=== PATIENT | female | born 2005 | race Two or more races ===

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

== ENCOUNTER 2024-09-21 04:05 | Emergency (ER) | payer OTHER, SELFPAY ==
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
--- NOTE | ~2024-09-21 | XR_ITS ---
Right Shoulder Technique: AP and axillary views were obtained. Clinical History: Trauma Findings: No fracture or dislocation is seen. Osseous alignment is anatomic. The glenohumeral and acr omioclavicular joint spaces are preserved. Soft tissues are unremarkable. Impression: Unremarkable right shoulder radiographs. Reviewed, dictated and finalized at [facility]. Impression: Unremarkable right shoulder radiographs.
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
[2024-09-21 04:06] VITALS: BP 129/77; PULSE 93; RESP 14; TEMP 36.6; O2SAT 100
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
--- OUTSIDE RECORDS SUMMARY | 2024-09-21 05:14 | XMS_ITS ---
Author Organization [facility], [facility] Address [address] [place] [address] Care Team Providers Care Brim Welt Sewing Machine Operator Name Role Phone Roland Dickinson Primary Care Provider Maya Morse Unavailable [phone] REASON FOR VISIT New Patient Psych Eval, zoom link sent Medications Medication SIG (Take, Route, Frequency, Duration) Notes Start Date End Date Status Naloxone HCl 4 MG/0.1ML as directed Nasally 2022 Not-Taking guanFACINE HCl 1 MG 1 tablet at bedtime Orally Once a day for 30 day(s) Not-Taking Sublocade 300 MG/1.5ML 1.5 mL Subcutaneous 024 Active cloNIDine HCl 0.1 MG 0.5 tablet Orally t wice a day PRN for 30 days Active Carbamide Peroxide 6.5 % 5 drops into af fected ear Otic Twice a day for 7 days Not-Taking Buprenorphine HCl-Naloxone HCl 4-1 MG 1 film under the tongue and allow to dissolve Sublingual Once a day As needed for OPIOID CRAVINGS 10/08/2023 Active Sertraline HCl 50 MG 1 tablet Orally Onc e a day for 30 days Active Social History Sex Assigned At : Social History Observation Description Sex Assigned At Female Encounters Encounter Location Date Provider Diagnosis [address] [place] [address] 09/15/2024 Maya Morse Plan Of Treatment No Information Progress Notes * Patricia AMBROSEOB:[birth year] (19 yo F)Acc No.[id number]:09/15/2024 UNLOCKED PROGRESS NOTE Patient: Ivon RIZO Provider: Vane Morse, MSN, FLOOR LAYER APPRENTICE, WEBSPHERE DEVELOPER-C :2005 A ge:19 Y S ex:Female Date:09/15/2024 Address:[address] [place] [address], [address] Pcp:Roland Dickinson Subjective: * Chief Complaints: * 1 . New Patient Psych Eval, zoom link sent. * Medical History: * Medications: T aking Sertraline HCl 50 MG Tablet 1 tablet Orally Once a day , Taking cloNIDine HCl 0.1 MG Tablet 0.5 tablet Orally twice a day PRN , Taking Sublocade 300 MG/1.5ML Solution Prefilled Syringe 1.5 mL Subcutaneous , Taking Buprenorphine HCl- Naloxone HCl 4-1 MG Film 1 film under the tongue and allow to dissolve Sublingual Once a day As needed for OPIOID CRAVINGS, Not-Taking Carbamide Peroxide 6.5 % Solution 5 drops into affected ear Otic Twice a day , Not-Taking Naloxone HCl 4 MG/0.1ML Liquid as directed Nasally , Not-Taking guanFACINE HCl 1 MG Tablet 1 tablet at bedtime Orally Once a day Objective: * Vitals: Assessment: Plan: * Treatment: * * Electronic signature of Caesar Morse , [id number] on 09/21/2024 at 05:14 AM CDT Sign off status: Pending * Provider: Vane Morse, MSN, FLOOR LAYER APPRENTICE, WEBSPHERE DEVELOPER-C Date: 0 09/15/2024 Generated for Annelise grullon/Cristi/Paul on: 0 09/21/2024 05:14 AM CDT
--- OUTSIDE RECORDS SUMMARY | 2024-09-21 05:14 | XMS_ITS | Patient Health Record ---
Author Organization [facility] Address [address] [place] [address] Care Team Providers Care Supervisor Heavy Equipment Name Role Phone Roland Dickinson Primary Care Provider Ann Bettencourt Unavailable [phone] Maya Morse Unavailable [phone] Urvashi Valentine Unavailable Allergies No Known Allergies Results Component Value Reference Range Notes 12 Panel Urine Drug Screen Reviewed date:10/08/2023 02:08:21 PM Interpretation: Performing Lab: Notes/Report: THC POS ASIM neg MOP (OPI) neg AMP neg MET neg BAR neg BZO neg MDMA neg MTD neg OXY neg PCP neg BUP POS Reason For Referral No Information Medications Medication SIG (Take, Route, Frequency, Duration) Notes Start Date End Date Status Naloxone HCl 4 MG/0.1ML as directed Nasally 2022 Not-Taking guanFACINE HCl 1 MG 1 tablet at bedtime Orally Once a day for 30 day(s) Not-Taking Sublocade 300 MG/1.5ML 1.5 mL Subcutaneous 024 Active Buprenorphine HCl-Naloxone HCl 4-1 MG 1 film under the tongue and allow to dissolve Sublingual Once a day As needed for OPIOID CRAVINGS 10/08/2023 Active Sertraline HCl 50 MG 1 tablet Orally Onc e a day for 30 days Active cloNIDine HCl 0.1 MG 0.5 tablet Orally t wice a day PRN for 30 days Active Carbamide Peroxide 6.5 % 5 drops into af fected ear Otic Twice a day for 7 days Not-Taking Social History Tobacco Use: Social History Observation Description Date Details (start date - stop date) Unknown Sex Assigned At : Social History Observation Description Sex Assigned At Female Dont use, Tobacco Use/Smoking Question Answer Notes Are you a Uses tobacco in other forms Additional Findings: Tobacco User e-Cigarette PRAPARE Question Answer Notes Date Completed/Updated: 10/08/2023 What is your current housing situation? I have h ousing Are you worried about losing your housing? No What is the highest level of school that you have finished? High school diploma or GED What is your current work situation? Unemployed and seeking work In the past year, have you o r any family members you live with been unable to get any of the following when it was really needed? Check all that apply I do not have problems meeting my needs Has lack of transportation k ept you from medical appointments, meetings, work or from getting things needed for daily living? No How often do you see or talk to people that you care about and feel close to? (For example: talking to friends on the phone, visiting friends or family, going to restoration or club meetings) More than 5 times a week How stressed are you? Stress is when someone feels tense, nervous, anxious, or can\t sleep at night because their mind is troubled Somewhat In the past year have you sp ent more than 2 nights in a row in a [place] health care facility, jail, longterm center, or juvenile correctional facility? No Are you a refugee? No What country are you from? [place] Do you feel physically and e motionally safe where you currently live? Yes In the past year, have you b een afraid of your partner or ex-partner? No PRAPARE Score: 6 Tobacco Control (Standard) Question Answer Notes Tobacco use: Uses tobacco in other forms Additional Findings: Tobacco user e-cigarette Problems Problem Type SNOMED Code ICD Code Onset Dates Problem Status W/U Status Risk Notes Problem Tobacco user (442275923) Nicotine dependence, unspecified, uncomplicated (F17.200) Active confirmed Problem Anxiety disorder (191791026) Anxiety disorder, unspecified (F41.9) 03/20/20 Active confirmed Problem Posttraumatic stress disorder (59395184) PTSD (post-traumatic stress disorder) (F43.10) 03/20/20 Active confirmed Problem Cannabis abuse (96781838) Cannabis use disorder, mild, abuse (F12.10) 10/20/20 23 Active confirmed Problem Opioid abuse (1813932) Opioid use disorder, mild, in early remission (F11.10) 03/20/20 23 Active confirmed Problem History of intravenous drug abuse (situation) (9483842387037572 3) IV drug abuse (F19.10) Active confirmed Problem 43550120 Current mild episode of major depressive disorder without prior episode (F32.0) 03/04/20 22 Active confirmed Problem Opioid use disorder (7110222074) Opioid use disorder (F11.99) Active confirmed Vital Signs Heart Rate 65 /min 10/08/2023 Respiratory Rate 16 /min 10/08/2023 Blood pressure diastolic 72 mm Hg 10/08/2023 Oximetry 97 % 10/08/2023 Height 65 in 10/08/2023 BMI Percentile 48.27 % 10/08/2023 Blood pressure systolic 116 mm Hg 10/08/2023 Weight 129 lb 6 oz lbs 10/08/2023 BMI 21.53 kg/m2 10/08/2023 Encounters Encounter Location Date Provider Diagnosis [address] [address] 10/08/2023 Urvashi Valentine Opioid use disorder F11.99 ; Cannabis use disorder, mild, abuse F12.10 and Nicotine dependence, unspecified, uncomplicated F17.[address] [address] 10/08/[address] [place] [address] 10/15/[address] [place] [address] 09/15/2024 Maya Morse Assessments Encounter Date Diagnosis (ICD Code) Assessment Notes Treatment Notes Treatment Clinical Notes Section Notes 10/08/2023 Opioid use disorder (ICD-10 - F11.99) 10/08/2023 Cannabis use disorder, mild, abuse (ICD-10 - F12.10) 10/08/2023 Nicotine dependence, unspecified, uncomplicated (ICD-10 - F17.200) 10/08/2023 Other Staff [facility] assists Consumer to connect with a middle school coach based on need. Provided case management services to address social determinants of health needs and reduce barriers to health care services. Plan Of Treatment No Information Insurance Providers Payer Name Payer Address Payer Phone Subscriber Number Group Number Insured Name Patient Relationship to Insured Coverage Start Date Coverage End Date [facility] Claims Department [address] [place] [address] [phone] [id number] Ivon Ambrose Self - patient is the insured 2 [facility] Claims Department [address] [place] [address] [phone] [id number] Ivon Ambrose Self - patient is the insured 2 Medications Administered Medication Instructions Date of Administration Dosage Notes Sublocade 10/08/2023 300 mg Zack Tolliver 10/08/2023 02:21:56 PM CDT >Patient tolerated well. Medical (General) History Medical History History ICD Code Substance Use Disorder Miscarriage Surgical History Surgery Date(Month/Year) Hospitalization History Reason Date(Month/Year) OD attempt age 10 Opioid withdraws 1 week stay [facility] 11/2022
--- OUTSIDE RECORDS SUMMARY | 2024-09-21 05:14 | XMS_ITS ---
Author Organization [facility] Address [address] [place] [address] Care Team Providers Care Fixed Income Analyst Name Role Phone Roland Dickinson Primary Care Provider Urvashi Valentine REASON FOR VISIT 1 Month Psych F/U MAT sublocade Medications Medication SIG (Take, Route, Frequency, Duration) [...] As needed for OPIOID CRAVINGS 10/08/2023 Active Carbamide Peroxide 6.5 % 5 drops into af fected ear Otic Twice a day for 7 days Not-Taking Sertraline HCl 50 MG 1 tablet Orally Onc e a day for 30 days Active cloNIDine HCl 0.1 MG 0.5 tablet Orally t wice a day PRN for 30 days Active Social History Sex Assigned At : Social History Observation Description Sex Assigned At Female Encounters Encounter Location Date Provider Diagnosis [facility] [address] [place] [address] 11/05/2023 Urvashi Valentine Plan Of Treatment No Information Progress Notes * Patricia AMBROSEOB:[birth year] (19 yo F)Acc No.[id number]:11/05/2023 UNLOCKED PROGRESS NOTE Patient: W ILSON, Ivon Provider: Elizabeth Valentine MSN, EXTERNAL RELATIONS MANAGER, TEST DATA DEVELOPER-BC, TEST DATA DEVELOPER-C :2005 A ge:18 Y S ex:Female Date:11/05/2023 Address:[address] [place], [place] [id number] Pcp:Roland Dickinson Subjective: * Chief Complaints: * 1 . 1 Month Psych F/U MAT sublocade. * Medical History: * Medications: T aking [...] * Vitals: Assessment: Plan: * Treatment: * Care Plan Details* * Electronic signature of Cameron Valentine APRN, [id number] on 09/21/2024 at 05:14 AM CDT Sign off status: Pending * Provider: CISCO Arteaga, EXTERNAL RELATIONS MANAGER, TEST DATA DEVELOPER-BC, TEST DATA DEVELOPER-C Date: 0 11/05/2023 Generated for Printing/Faxing/eTransmitting on: 0 09/21/2024 05:14 AM CDT
[2024-09-21] MEDS: HYDROGEN PEROXIDE 3% SOLN(*SP) 473 ML BOTTLE (05:34)
[2024-09-21] MEDS: TETANUS,DIPHTHERIA,AC PERTUSSIS ADULT (0.5 ML) BOOSTRIX IM (05:35)
[2024-09-21] MEDS: AMOXICILLIN/CLAVULANATE K 875-125 MG TAB 1 TABLET PO (05:35)
== END 2024-09-21 06:38 | disposition home or self-care (01) ==
PROVIDERS: Emergency Provider Emergency Medicine; PCP Family Medicine
DX: S09.90XA Unspecified injury of head, initial encounter (principal); R04.0 Epistaxis; S00.83XA Contusion of other part of head, initial encounter; Y04.2XXA Assault by strike against or bumped into by another person, initial encounter; Y04.1XXA Assault by human bite, initial encounter; Z23 Encounter for immunization
CPT/HCPCS: 70450; 70486; 71046; 72125; 73030; 90471; 90715; 99284; A9270

== ENCOUNTER 2024-12-16 13:41 | Emergency (ER) | payer SELFPAY ==
--- NOTE | 2024-12-16 13:42 | ED.FEMALEGU ---
HPI - Female Genitourinary General Chief complaint: Urogenital-Female Stated complaint: std testing Time Seen by Provider: 12/16/24 13:42 Source: patient Mode of arrival: ambulatory Limitations: no limitations History of Present Illness HPI Narrative: Patient is a 19-year-old female who presents with vaginal odor, dysuria and requesting STI testing. Patient thought she had a yeast infection and treated with 3 day Monistat. States her vaginal swelling and white discharge resolved but now is having any new abnormal smell. Denies any new discharge. Does not have concern for STI has she has been with the same partner for 5 years. Also reports dysuria but no frequency or urgency. She denies any low back pain, abdominal pain, fever, chills, nausea, vomiting, diarrhea. Patient had miscarriage 1 month ago and states she stopped bleeding 2 weeks ago. MD elicited complaint: dysuria Related Data Allergies Allergy/AdvReac Type Severity Reaction Status Date / Time No Known Allergies Allergy Verified 12/16/24 13:51 Review of Systems Review of Systems: All systems reviewed & are unremarkable except as noted in HPI and below Constitutional: Constitutional: Denies chills, Denies fever(s), Denies headache(s), Denies malaise and Denies weakness Eyes: Eyes: Denies change in vision, Denies eye discharge and Denies irritation ENT: Denies otalgia, Denies headache(s), Denies nasal congestion, Denies nasal discharge, Denies sinus pain and Denies sore throat Cardiovascular: Cardiovascular: Denies chest pain, Denies edema, Denies palpitations and Denies dyspnea Respiratory: Respiratory: Denies cough and Denies dyspnea Gastrointestinal: Gastrointestinal: Denies abdominal pain, Denies diarrhea, Denies nausea and Denies vomiting Genitourinary: Genitourinary: Denies hematuria, Denies nocturia, Reports dysuria, Denies flank pain, Denies urinary urgency and Reports vaginal odor Musculoskeletal: Musculoskeletal: Denies back pain and Denies numbness Integumentary/Breasts: Skin/Breast: Denies pruritus and Denies rash Neurologic: Denies headache(s), Denies numbness and Denies weakness Psychiatric: Psychiatric: Reports no additional psychiatric complaints Endocrine: Endocrine: Denies palpitations PMFSH Comments At time of signature, agree with nursing past medical, surgical, social and family history. There is no relevant family history pertinent to the presenting complaint. Exam Const: General: cooperative, healthy appearing, comfortable, no acute distress and well nourished Nutritional Appearance: well nourished Orientation/consciousness: patient oriented x3 HENMT: Head: normocephalic and atraumatic Ears: external ears normal Face/Nose/Sinus: Normal external nose present, Normal nares present and normal facial exam Face and sinus: normal facial exam Eyes: General: appearance normal, both eyes and all related structures Pupils: Equal, round and reactive pupils present EOM: EOMs intact bilaterally Neck: Neck: normal visual inspection, full ROM and supple Chest: Chest palpation & inspection: normal inspection of the chest Resp: Effort & Inspection: normal respiratory effort and able to speak in complete sentences Cardio: Rate: regular rate Rhythm: regular rhythm GI: Inspection: normal to inspection GI Palp: No abdominal tenderness and Yes Soft to palpation : General: Yes no CVA tenderness Back/Spine/Pelvis: Back: no CVA tenderness Skin: General skin exam: normal color and no rashes or lesions noted Neuro: General: patient oriented x3 and moves all extremities Cranial nerves: Yes Equal, round and reactive pupils present Extrem: General: normal to inspection and full ROM Psych: Appearance: grossly normal and well kempt Course Course Emergency Course: Patient is aware of diagnosis, understands and agrees to treatment plan. Anticipatory guidance given. Patient agrees to follow-up as directed and is aware of reasons to seek care at the emergency department. Portions of this record may have been created with voice recognition software Level of Care: Express Care Visit Vital Signs Vital signs: Vital Signs Temperature 36.8 C 12/16/24 13:51 Pulse Rate 94 12/16/24 13:51 Respiratory Rate 12/16/24 13:51 Blood Pressure 122/91 H 12/16/24 13:51 Pulse Oximetry 100 12/16/24 13:51 Oxygen Delivery Room Air 12/16/24 13:51 Temperature 36.8 C 12/16/24 13:51 Pulse Rate 94 12/16/24 13:51 Respiratory Rate 18 12/16/24 13:51 Blood Pressure 122/91 H 12/16/24 13:51 Pulse Oximetry 100 12/16/24 13:51 Oxygen Delivery Room Air 12/16/24 13:51 Reviewed MDM - Female Genitourinary MDM Narrative Medical decision making narrative: Urine sent for STI testing. Will treat for BV of patient has vaginal odor and reason for bacterial scott changes. Exam findings and UA show probable UTI; patient is non-toxic appearing and is in no distress. No CMT, adnexal tenderness, or evidence of pelvic etiology. Patient is appropriate for outpatient treatment and follow-up. Differential Diagnosis Differential diagnosis: Likely urinary tract infection, bacterial vaginosis, trichomoniasis, cervicitis, vaginitis and cystitis Medical Records Attestation: I reviewed the patient's medical records. Lab Data Attestation: I reviewed the patient's lab results. Labs: Lab Results 12/16/24 Range/Units 14:27 POC Urine Color Dark POC Urine Clarity Cloudy POC Urine pH 6.0 POC Ur Specif [place] 1.025 POC Urine Protein 2+ (Negative) POC Ur Glucose (UA) Negative (Negative) POC Urine Ketones Trace (Negative) POC Urine Blood Negative (Negative) POC Urine Nitrite Negative (Negative) POC Urine Bilirubin Negative (Negative) POC Urine Urobilinogen 0.2 POC U Leukocyte Esteras 1+ (Negative) Discharge Plan Discharge Clinical Impression: Bacterial vaginosis Urinary tract infection Qualifiers: Urinary tract infection type: acute cystitis Hematuria presence: without hematuria Qualified Code(s): N30.00 - Acute cystitis without hematuria Patient Disposition: Home Condition: Stable Instructions: Bacterial Vaginosis (ED), Urinary Tract Infection in Women (DC) Additional Instructions: We will send a urine culture to the lab, based on your symptoms and urine dip we will start treatment today. If culture comes back and bacteria is not susceptible to antibiotic, your prescription may change. Your symptoms should improve within a day of starting antibiotics, but you should finish all the antibiotic pills you get. Otherwise your infection might come back Continue with increased water intake. Take Tylenol or ibuprofen as needed for pain or fever. Follow-up with primary care provider for urine recheck or see ER visit if condition worsens with high fever, nausea, vomiting, severe back pain Take antibiotics as prescribed. Wear cotton underwear. Do not use any scented tampons or pads. Do not take baths with scented soaps. Follow-up with agricultural science professor or primary care provider if symptoms not improving in 3-5 days. Contact your health care provider or report to the emergency department if: ? You have genital swelling or pain, or unusual bleeding. ? You have joint pain, rash, swollen lymph nodes or night sweats. ? You are severe abdominal pain. ? You have a fever. ? Symptoms do not go away or they get worse even after treatment. ? You have bleeding or pain during sex. Patient Language: [place]uran Prescriptions: New metronidazole 500 mg tablet 500 mg PO Q12H 7 Days Qty: 14 0RF cephalexin 500 mg capsule 500 mg PO Q12H 5 Days Qty: 10 0RF Follow-up/Referrals: Robert Bartlett MD [Physician] - 3 Days Time of Disposition: 14:38
[2024-12-16 13:51] VITALS: BP 122/91; PULSE 94; RESP 18; TEMP 36.8; O2SAT 100
[2024-12-16 14:29] LABS: EDUAAPPEAR Cloudy; EDUABILI Negative (Negative); EDUABLOOD Negative (Negative); EDUACOLOR1 Dark; EDUAGLUCOSE Negative (Negative); EDUAKETONE Trace (Negative); EDUALEUKO 1+ (Negative); EDUANITRATE Negative (Negative); EDUAPH 6.0; EDUAPROTEIN 2+ (Negative); EDUASPGRAVITY 1.025; EDUAUROBILI 0.2
[2024-12-16 19:26] LABS: Trichomonas Vag PCR NOT DETECTED (NOT DETECTE)
== END 2024-12-16 14:50 | disposition home or self-care (01) ==
PROVIDERS: Emergency Provider Nurse Practitioner Family
DX: N76.0 Acute vaginitis (principal); N30.00 Acute cystitis without hematuria; Z11.3 Encounter for screening for infections with a predominantly sexual mode of transmission
CPT/HCPCS: 81003; 87086; 87491; 87591; 87661; 99213; G0463

== ENCOUNTER 2025-02-10 08:14 | Emergency (ER) | payer OTHER, SELFPAY ==
[2025-02-10 08:22] VITALS: BP 124/75; PULSE 93; RESP 16; TEMP 36.9; O2SAT 98
[2025-02-10 08:31] LABS: EDUAAPPEAR Cloudy; EDUABILI Negative (Negative); EDUABLOOD Trace (Negative); EDUACOLOR1 Yellow; EDUAGLUCOSE Negative (Negative); EDUAKETONE Negative (Negative); EDUALEUKO 1+ (Negative); EDUANITRATE Negative (Negative); EDUAPH 6.0; EDUAPROTEIN 1+ (Negative); EDUASPGRAVITY 1.030; EDUAUROBILI 0.2
--- NOTE | 2025-02-10 08:32 | ED_ITS ---
HPI - Female Genitourinary General Chief complaint: Urogenital-Female Stated complaint: UTI Time Seen by Provider: 02/10/25 08:32 Source: patient Mode of arrival: ambulatory Limitations: no limitations History of Present Illness HPI Narrative: 20-year-old female presents with complaint of urinary frequency, dysuria for 1 week. No other symptoms. Afebrile. No concern for . All systems reviewed and negative except as noted above. Related Data Allergies Allergy/AdvReac Type Severity Reaction Status Date / Time No Known Allergies Allergy Verified 02/10/25 08:24 PMFSH Comments At time of signature, agree with nursing past medical, surgical, social and family history. There is no relevant family history pertinent to the presenting complaint. Exam Narrative: GENERAL: This is a well-nourished, well-developed patient, in no apparent distress. HEAD: normocephalic, atraumatic. EYES: PERRL. Sclera clear/white. Vision is grossly intact. EARS: External ears normal NOSE: External nose normal NECK: Neck supple, non-tender without lymphadenopathy, masses or thyromegaly. CARDIOVASCULAR: Regular rate and rhythm without murmurs, gallops, or rubs. RESPIRATORY: Clear to auscultation. Breath sounds equal bilaterally. No wheezes, rales, or rhonchi. SKIN: warm, Dry, intact with no suspicious lesions or rash, good texture and turgor. NEURO: awake, alert, and oriented to person, place and time. There were no obvious focal neurologic abnormalities. EXTREMITIES: No joint tenderness, effusion, or edema noted. Course Course Level of Care: Express Care Visit Vital Signs Vital signs: Vital Signs Temperature 36.9 C 02/10/25 08:22 Pulse Rate 93 02/10/25 08:22 Respiratory Rate 16 02/10/25 08:22 Blood Pressure 124/75 02/10/25 08:22 Pulse Oximetry 98 02/10/25 08:22 Oxygen Delivery Room Air 02/10/25 08:22 Temperature 36.9 C 02/10/25 08:22 Pulse Rate 93 02/10/25 08:22 Respiratory Rate 16 02/10/25 08:22 Blood Pressure 124/75 02/10/25 08:22 Pulse Oximetry 98 02/10/25 08:22 Oxygen Delivery Room Air 02/10/25 08:22 Reviewed MDM - Female Genitourinary MDM Narrative Medical decision making narrative: urinalysis 1+ leukocytes. Will treat patient with antibiotic for urinary tract infection due to patient's symptoms. Patient is well-appearing, nontoxic. Differential Diagnosis Differential diagnosis: Likely urinary tract infection Lab Data Labs: Lab Results 02/10/25 Range/Units 08:28 POC Urine Color Yellow POC Urine Clarity Cloudy POC Urine pH 6.0 POC Ur Specif [place] 1.030 POC Urine Protein 1+ (Negative) POC Ur Glucose (UA) Negative (Negative) POC Urine Ketones Negative (Negative) POC Urine Blood Trace (Negative) POC Urine Nitrite Negative (Negative) POC Urine Bilirubin Negative (Negative) POC Urine Urobilinogen 0.2 POC U Leukocyte Esteras 1+ (Negative) Discharge Plan Discharge Clinical Impression: Urinary tract infection Patient Disposition: Home Condition: Stable Instructions: Antibiotic Form, Urinary Tract Infection in Women (ED) Additional Instructions: take antibiotic as prescribed until gone. Drink at least 64 oz of water a day. Follow-up with your primary care physician if symptoms are not improving. Patient Language: [place]an Prescriptions: New amoxicillin-pot clavulanate [Augmentin] 500-125 mg tablet 1 tablet PO BID 5 Days Qty: 10 0RF Follow-up/Referrals: PHYSICIAN,VEGETABLE GRADER [Primary Care Provider, Internal Medicine] Time of Disposition: 08:36
== END 2025-02-10 08:41 | disposition home or self-care (01) ==
PROVIDERS: Emergency Provider Nurse Practitioner Family
DX: N39.0 Urinary tract infection, site not specified (principal)
CPT/HCPCS: 81003; 87086; 87186; 99213; G0463